=== PATIENT | male | born 1990 | race African-American/Black ===

== ENCOUNTER 2020-06-16 12:02 | Emergency (ER) | payer OTHER ==
[~2020-06-16] VITALS: Ht 170.2 cm; Wt 83.3 kg
--- NOTE | 2020-06-16 13:06 | REP ---
INDICATION: R flank pain hx of kidney stones COMPARISON: None TECHNIQUE: Axial noncontrast images from the lung bases to the pubic symphysis with coronal and sagittal reformations. This CT examination was performed using the following dose reduction techniques: Automated exposure control, adjustment of mA and/or kv according to the patient's size, and use of iterative reconstruction technique. FINDINGS: Evaluation of the urinary tract system demonstrates few bilateral punctate nonobstructing nephroliths measuring up to 2-3 mm bilaterally without hydroureteronephrosis or perinephric stranding. However, a 2 mm calculus at the right ureterovesical junction (image 115) cannot be excluded and should be correlated with physical examination and urinalysis. Liver, spleen, pancreas, gallbladder, and bilateral adrenal glands are normal. The enteric system is without obstruction or acute inflammatory process. Normal terminal ileum and appendix identified in the right lower quadrant. Pelvis demonstrates collapsed bladder and age-appropriate prostate/seminal vesicles. No ascites. No free air. No adenopathy. Abdominal aorta appears normal. Musculoskeletal structures are intact. Lung bases are clear. IMPRESSION: Bilateral nephrolithiasis without hydronephrosis or perinephric stranding. Cannot exclude 2 mm calculus at the right ureterovesical junction. <Electronically signed by Oni Trujillo > 06/16/20 [id number]
[2020-06-16] MEDS ORDERED: FLOM0.4C39 PO (13:21)
[2020-06-16] MEDS ORDERED: AZITHROMYCIN 250MG TABLET PO ONE (13:30)
[2020-06-16] MEDS ORDERED: cefTRIAXone SOD 250MG VIAL (J0696 PER 250MG) IM ONE (13:30)
[2020-06-16] MEDS ORDERED: LIDOCAINE 1% SDV 5ML VIAL DILUENT ONE (13:30)
[2020-06-16 13:45] VITALS: BP 118/61
[2020-06-16 14:43] LABS: CHLAMYDIA DNA AMPLIFICATION POSITIVE (NEGATIVE); GC DNA AMPLIFICATION NEGATIVE (NEGATIVE)
== END 2020-06-16 14:15 | disposition home or self-care (01) ==
LOC: M ED 12:02
DX: N20.0 Calculus of kidney (principal); Z11.3 Encounter for screening for infections with a predominantly sexual mode of transmission
CPT/HCPCS: 74176; 81001; 87086; 87661; 99283; J0696

== ENCOUNTER → 2020-06-20 | Outpatient (CLI) | payer OTHER ==
[~2020-06-20] MED LIST: FLOM0.4C39 PO
[2020-06-20 12:01] LABS: SEMEN APPEARANCE OPAQUE (OPAQUE); SEMEN VISCOSITY VISCOUS (LIQUID); SEMEN VOLUME 1.5 ml (2.0-5.0); SEMEN pH 7.5 (7.0-8.0)
[2020-06-20 12:02] LABS: SPERM CONCENTRATION 34.7 M/ml (>=15.0); WBC CONCENTRATION >1 M/ml (<=1 M/ml)
== END ==
LOC: M LAB 11:08
PROVIDERS: ATTEND Family Medicine
DX: Z31.41 Encounter for fertility testing (principal)

== ENCOUNTER 2020-07-30 16:20 | Emergency (ER) | payer OTHER ==
[~2020-07-30] VITALS: Ht 172.7 cm; Wt 82.3 kg
[2020-07-30 16:20] VITALS: BP 133/78
[2020-07-30] MEDS ORDERED: KEPP1TAB2 PO (16:44)
--- NOTE | 2020-07-30 17:06 | REP ---
INDICATION: trauma. COMPARISON: None. TECHNIQUE: CT BRAIN PERFORMED IN THE AXIAL PLANE. CORONAL RECONSTRUCTION IMAGES ARE PERFORMED. FINDINGS: THE VENTRICLES ARE NORMAL IN SIZE AND POSITION. THERE IS NO MIDLINE SHIFT OR MASS EFFECT. GRAJEDA-WHITE DIFFERENTIATION IS WELL MAINTAINED. THERE IS NO ACUTE INTRACRANIAL HEMORRHAGE OR EXTRA-AXIAL FLUID COLLECTION. BONE WINDOW EXAMINATION IS UNREMARKABLE. VISUALIZED MASTOID AIR CELLS AND PARANASAL SINUSES ARE CLEAR. IMPRESSION: NEGATIVE NONCONTRAST CT BRAIN. <Electronically signed by Tyler Grajeda > 07/30/20 [id number]
[2020-07-30] MEDS ORDERED: diphenhydrAMINE 25MG CAP PO ONE (19:00)
[2020-07-30] MEDS ORDERED: levETIRAcetam 250MG TABLET (KEPPRA) PO ONE (19:00)
[2020-07-30] MEDS ORDERED: KETOROLAC 60MG 2ML VIAL IM ONE (19:00)
[2020-07-30] MEDS ORDERED: METOCLOPRAMIDE 10 MG TAB PO ONE (19:00)
--- NOTE | 2020-07-30 19:38 | REPVR ---
PROCEDURE INFORMATION: Exam: CT Cervical Spine Without Contrast Exam date and time: 07/30/2020 7:03 PM Age: 30 years old Clinical indication: Pain; Other: Tender; Additional info: PT tender, heavy metal fell on top of head TECHNIQUE: Imaging protocol: Computed tomography images of the cervical spine without contrast. Radiation optimization: All CT scans at this facility use at least one of these dose optimization techniques: automated exposure control; mA and/or kV adjustment per patient size (includes targeted exams where dose is matched to clinical indication); or iterative reconstruction. COMPARISON: No relevant prior studies available. FINDINGS: Vertebrae: No acute fracture. Reversal of normal cervical lordosis. C2-C3: No significant disc protrusion. No severe spinal canal stenosis. No significant neural foraminal narrowing. C3-C4: No significant disc protrusion. No severe spinal canal stenosis. No significant neural foraminal narrowing. C4-C5: No significant disc protrusion. No severe spinal canal stenosis. No significant neural foraminal narrowing. C5-C6: No significant disc protrusion. No severe spinal canal stenosis. No significant neural foraminal narrowing. C6-C7: No significant disc protrusion. No severe spinal canal stenosis. No significant neural foraminal narrowing. C7-T1: No significant disc protrusion. No severe spinal canal stenosis. No significant neural foraminal narrowing. Soft tissues: Unremarkable. Lungs: Lung apices are normal. IMPRESSION: No acute findings. Electronically signed by: Eloina Loaiza On 07/30/2020 19:38:47 PM
== END 2020-07-30 20:26 | disposition home or self-care (01) ==
LOC: M ED 16:20
DX: S06.0X9A Concussion with loss of consciousness of unspecified duration, initial encounter (principal); W20.8XXA Other cause of strike by thrown, projected or falling object, initial encounter; W50.0XXA Accidental hit or strike by another person, initial encounter; Y92.89 Other specified places as the place of occurrence of the external cause; Y93.89 Activity, other specified; Y99.1 Military activity; Z87.442 Personal history of urinary calculi; Z79.899 Other long term (current) drug therapy

== ENCOUNTER 2020-08-05 09:34 | Emergency (ER) | payer OTHER ==
[~2020-08-05] VITALS: Ht 170.2 cm; Wt 86.5 kg
[~2020-08-05 09:34] MED LIST changes: +KEPP1TAB2 PO
[2020-08-05 10:04] LABS: BASO % 0.3 % (0.0-1.0); EOS % 0.6 % (0.0-3.0); HEMATOCRIT 47.1 % (42.0-52.0); HEMOGLOBIN 15.4 g/dl (13.5-17.5); LYMPH # 1.5 10^3/uL (1.5-5.0); LYMPH % 22.1 % (24.0-44.0); MEAN CORPUSCULAR HEMOGLOBIN 28.8 pg (27.0-33.0); MEAN CORPUSCULAR HGB CONC 32.7 g/dl (32.0-36.5); MEAN CORPUSCULAR VOLUME 88.2 fl (80.0-96.0); MONO # 0.6 10^3/uL (0.0-0.8); MONO % 8.5 % (0.0-5.0); NEUTROPHILS # 4.6 10^3/uL (1.5-8.5); NEUTROPHILS % 68.1 % (36.0-66.0); PLATELET COUNT, AUTOMATED 231 10^3/uL (150-450); RED BLOOD COUNT 5.34 10^6/uL (4.30-6.10); WHITE BLOOD COUNT 6.7 10^3/uL (4.0-10.0)
--- NOTE | 2020-08-05 10:15 | REP ---
INDICATION: Altered Mental Status COMPARISON: 07/30/2020 TECHNIQUE: Axial noncontrast images from the skull base to the vertex with coronal reformations. This CT examination was performed using the following dose reduction techniques: Automated exposure control, adjustment of mA and/or kv according to the patient's size, and use of iterative reconstruction technique. FINDINGS: The ventricles, sulci, and cisterns are normal in position and appearance. Graejda-white differentiation is maintained. No acute intracranial hemorrhage, mass/mass effect, pathology or trauma/injury. No evidence for acute infarction. No extra-axial fluid collection. Calvarium is intact. Paranasal sinuses and mastoid air cells are clear. IMPRESSION: Normal noncontrast head CT. No evidence for acute intracranial pathology or trauma/injury. <Electronically signed by Oni Trujillo > 08/05/20 [id number]
--- NOTE | 2020-08-05 10:17 | REP ---
INDICATION: head injury COMPARISON: 07/30/2020 TECHNIQUE: Axial noncontrast images from the skull base to the thoracic inlet with coronal and sagittal re-formations This CT examination was performed using the following dose reduction techniques: Automated exposure control, adjustment of mA and/or kv according to the patient's size, and use of iterative reconstruction technique. FINDINGS: Examination is somewhat limited by motion artifact. Normal alignment is maintained. Straightening of normal lordosis is nonspecific finding. Cervical vertebral bodies including transverse processes and spinous processes are intact and there is no evidence for acute fracture / compression injury or subluxation. Spinal canal is patent. Posterior elements are intact. Paravertebral soft tissues are normal. IMPRESSION: No acute pathology or trauma/injury. <Electronically signed by Oni Trujillo > 08/05/20 [id number]
[2020-08-05 10:36] LABS: ALT/SGPT 39 U/L (12-78); BILIRUBIN,DIRECT < 0.1 MG/DL (0.0-0.2); BILIRUBIN,TOTAL 0.4 MG/DL (0.2-1.0); BLOOD UREA NITROGEN 9 MG/DL (7-18); CALCIUM LEVEL 9.3 MG/DL (8.5-10.1); CARBON DIOXIDE LEVEL 26 MEQ/L (21-32); CHLORIDE LEVEL 105 MEQ/L (98-107); CREATININE FOR GFR 1.37 MG/DL (0.70-1.30); GLOMERULAR FILTRATION RATE > 60.0 (>60); GLUCOSE, FASTING 93 MG/DL (70-100); MAGNESIUM LEVEL 2.4 MG/DL (1.8-2.4); POTASSIUM SERUM 4.3 MEQ/L (3.5-5.1); SODIUM LEVEL 139 MEQ/L (136-145); TOTAL PROTEIN 8.1 GM/DL (6.4-8.2)
--- OUTSIDE RECORDS SUMMARY | 2020-08-05 11:10 | CCD ---
Author Author [facility] Address Unknown Phone Unavailable Support Name Relationship Address Phone [facility] Next Of Kin [address] [place] [address] Unavailable JULIETA GRIMES Next Of Kin [address] [place] [address] Re-disclosure Warning The records that you are about to access may contain information from federally-assisted alcohol or drug abuse programs. If such information is present, then the following federally mandated warning applies: This information has been disclosed to you from records protected by federal confidentiality rules (42 CFR part 2). The federal rules prohibit you from making any further disclosure of this information unless further disclosure is expressly permitted by the written consent of the person to whom it pertains or as otherwise permitted by 42 CFR part 2. A general authorization for the release of medical or other information is NOT sufficient for this purpose. The Federal rules restrict any use of the information to criminally investigate or prosecute any alcohol or drug abuse patient.The records that you are about to access may contain highly sensitive health information, the redisclosure of which is protected by Article 27-F of the [facility] Public Health law. If you continue you may have access to information: Regarding HIV / AIDS; Provided by facilities licensed or operated by the [facility] Office of Mental Health; or Provided by the [facility] Office for People With Developmental Disabilities. If such information is present, then the following [facility] mandated warning applies: This information has been disclosed to you from confidential records which are protected by state law. State law prohibits you from making any further disclosure of this information without the specific written consent of the person to whom it pertains, or as otherwise permitted by law. Any unauthorized further disclosure in violation of state law may result in a fine or chcf sentence or both. A general authorization for the release of medical or other information is NOT sufficient authorization for further disc losure. Insurance Providers Payer name Policy type / Coverage type Policy ID Covered green party ID Covered green party's relationship to yao Policy Yao Plan Information [facility] [id number]
[2020-08-05] MEDS ORDERED: ACETAMINOPHEN TAB 650MG DOSE (2X325MG) PO ONE (11:45)
[2020-08-05] MEDS ORDERED: levETIRAcetam INJection 1,000 MG in D5W 100 ML IV ONE (13:00)
[2020-08-05] MEDS ORDERED: KEPP1TAB2 PO ×2 (13:00→13:35)
[2020-08-05 13:10] LABS: AMPHETAMINES LEVEL URINE NEGATIVE (NEGATIVE); BARBITURATES URINE NEGATIVE (NEGATIVE); BENZODIAZEPINES URINE NEGATIVE (NEGATIVE); CANNABINOIDS URINE NEGATIVE (NEGATIVE); COCAINE METABOLITE URINE NEGATIVE (NEGATIVE); METHADONE URINE NEGATIVE (NEGATIVE); OPIATES URINE NEGATIVE (NEGATIVE); PHENCYCLIDINE URINE NEGATIVE (NEGATIVE)
[2020-08-05 13:48] LABS: ETHYL ALCOHOL (ETHANOL) < 0.003 % (0.000-0.010)
[2020-08-05 14:00] VITALS: BP 117/64
--- NOTE | 2020-08-05 17:22 | ECGEPIP ---
[facility] - ED Test Date: 2020-08-05 Pat Name: SAMMY GRIMES Department: Room: - Gender: Male Database Report Writer: DAYAN : 1990 Requested By: IRMA SIDDIQI Order Number: [id number] Reading MD: Kayla Mckinney Measurements Intervals [place] Rate: 78 P: 68 LA: 189 QRS: 46 QRSD: 81 T: 44 QT: 355 QTc: 406 Interpretive Statements SINUS RHYTHM EARLY REPOLARIZATION No prior Electronically Signed on 08-05-2020 17:22:26 EST by Kayla Mckinney
== END 2020-08-05 14:40 | disposition home or self-care (01) ==
LOC: EDBD 09:34 → M ED 09:34
DX: R56.9 Unspecified convulsions (principal); R51.9 Headache, unspecified; Z87.828 Personal history of other (healed) physical injury and trauma; Z91.138 Patient's unintentional underdosing of medication regimen for other reason
CPT/HCPCS: 70450; 72125; 80048; 80076; 80307; 83735; 84443; 85025; 93005; 93041; 94760; 96365; 99285; G0480; J1953

== ENCOUNTER 2020-10-05 12:40 | Emergency (ER) | payer OTHER ==
[~2020-10-05] VITALS: Ht 170.2 cm; Wt 82.5 kg
[2020-10-05] MEDS ORDERED: KEPP1TAB2 PO (13:41)
[2020-10-05 13:52] VITALS: BP 120/48
== END 2020-10-05 13:53 | disposition home or self-care (01) ==
LOC: M ED 12:40
DX: Z76.0 Encounter for issue of repeat prescription (principal); G40.419 Other generalized epilepsy and epileptic syndromes, intractable, without status epilepticus

== ENCOUNTER 2020-11-11 22:30 | Emergency (ER) | payer OTHER ==
[~2020-11-11] VITALS: Ht 170.2 cm; Wt 79.5 kg
[2020-11-11] MEDS ORDERED: levETIRAcetam 250MG TABLET (KEPPRA) PO ONE (23:10)
[2020-11-11] MEDS ORDERED: KEPP1TAB2 PO (23:51)
[2020-11-12 00:21] LABS: HEMATOCRIT 42.1 % (42.0-52.0); HEMOGLOBIN 14.5 g/dl (13.5-17.5); MEAN CORPUSCULAR HGB CONC 34.4 g/dl (32.0-36.5); MEAN CORPUSCULAR VOLUME 87.2 fl (80.0-96.0); PLATELET COUNT, AUTOMATED 198 10^3/uL (150-450); RED BLOOD COUNT 4.83 10^6/uL (4.30-6.10); WHITE BLOOD COUNT 7.7 10^3/uL (4.0-10.0)
[2020-11-12 00:26] LABS: ALBUMIN 3.8 GM/DL (3.2-5.2); ALT/SGPT 43 U/L (12-78); BILIRUBIN,DIRECT < 0.1 MG/DL (0.0-0.2); BILIRUBIN,TOTAL 0.4 MG/DL (0.2-1.0); BLOOD UREA NITROGEN 14 MG/DL (7-18); CALCIUM LEVEL 9.6 MG/DL (8.5-10.1); CARBON DIOXIDE LEVEL 25 MEQ/L (21-32); CHLORIDE LEVEL 110 MEQ/L (98-107); CREATININE FOR GFR 1.22 MG/DL (0.70-1.30); GLOMERULAR FILTRATION RATE > 60.0 (>60); GLUCOSE, FASTING 107 MG/DL (70-100); POTASSIUM SERUM 4.4 MEQ/L (3.5-5.1); SODIUM LEVEL 141 MEQ/L (136-145); TOTAL PROTEIN 7.5 GM/DL (6.4-8.2)
[2020-11-12 02:30] VITALS: BP 122/71
== END 2020-11-12 03:23 | disposition home or self-care (01) ==
LOC: M ED 22:30
DX: G40.909 Epilepsy, unspecified, not intractable, without status epilepticus (principal); Z91.14 Patient's other noncompliance with medication regimen; N23 Unspecified renal colic; Z87.820 Personal history of traumatic brain injury; Z79.899 Other long term (current) drug therapy

== ENCOUNTER → 2021-02-27 | Outpatient (REF) | payer OTHER ==
[2021-02-27 14:29] LABS: SEMEN APPEARANCE OPAQUE (OPAQUE); SEMEN VOLUME 3.5 ml (2.0-5.0)
[2021-02-27 14:30] LABS: SEMEN VISCOSITY LIQUID (LIQUID); SEMEN pH 7.5 (7.0-8.0); SPERM CONCENTRATION 13.3 M/ml (>=15.0); WBC CONCENTRATION >1 M/ml (<=1 M/ml)
== END ==
LOC: M LAB REF 14:14
PROVIDERS: ATTEND Obstetrics & Gynecology
DX: N46.8 Other male infertility (principal)

== ENCOUNTER 2021-06-08 06:32 | Emergency (ER) | payer OTHER ==
[~2021-06-08] VITALS: Ht 170.2 cm; Wt 79.5 kg
--- OUTSIDE RECORDS SUMMARY | 2021-06-08 06:41 | CCD | Continuity of Care Document ---
Author Author Neeru HIGGINS M.D. Organization Unknown Address [facility] [address] [place] [address] Phone [phone] Care Team Providers Care Director Of Cardiopulmonary Services Name Role Phone Usa Meddac, [facility] AUTM Unavailable Problems Description No Active Problems Social History Type Date Description Comments Sex Unknown Tobacco Use Start: Unknown Never Smoked Cigars Tobacco Use Start: Unknown Never Smoked A Pipe Tobacco Use Start: Unknown Never Used Smokeless Tobacco ETOH Use Denies alcohol use Tobacco Use Start: Unknown Patient has never smoked Recreational Drug Use Denies Drug Use Allergies, Adverse Reactions, Alerts Description No Known Drug Allergies Medications Description No Active Medications Immunizations Description No Information Available Vital Signs Date Vital Result Comment 04/28/2021 10:51am BP Systolic 122 mmHg BP Diastolic 80 mmHg Heart Rate 74 /min O2 % BldC Oximetry 97 % Weight 175.00 lb Weight 79.380 kg Height 67 inches 5'7" BMI (Body Mass Index) 27.4 kg/m2 BSA (Body Surface Area) 1.91 m2 Results Test Acquired Date Facility Test Result H/L Range Note Inhouse [facility] 04/28/2021 In Office [facility] Color yellow Normal: Yellow Ua Appearance clear Normal: Clear Spec [place] 1.010 1.001-1.030 Ua PH Test Strip 7 5-9 Leukocytes negative Normal: Negative Ua Nitrate negative Normal: Negative Ua Protein negative Normal: Negative Inhouse Glucose negative Normal: Negative Ua Ketones negative Noraml: Negative Urobilinogen negative Normal: Negative Ua Bilirubin negative Normal: Negative Blood negative Noraml: Negative Procedures Date Code Description Status 04/28/2021 90868 Office/Outpatient [facility] 15- 29 Minutes Completed Medical Devices Description No Information Available Encounters Type Date Location Provider Dx Diagnosis Office Visit 04/28/2021 10:30a [facility] Anand Higgins M.D. N46.9 Male infertility, unspecified Z71.2 Person consulting for explan ation of exam or test findings Assessments Date Code Description Provider 04/28/2021 N46.9 Male infertility, unspecified Fe arielle Higgins M.D. 04/28/2021 Z71.2 Person consulting fo r explanation of examination or test findings Anand Higgins M.D. Plan of Treatment 04/28/2021 - Anand Higgins M.D.* N46.9 Male infertility, unspecified* Comments: * 1. Patient presents to the clinic today for evaluation and management of infertility issues.2. Physical examination completed in the office was unremarkable.3. Urinalysis was negative, which was reviewed with him.4. Last semen analysis result was reviewed with him at length. They are not having problems with attaining but with keeping it.5. The low semen parameters obviously are not preventing them from achieving a .I think they will benefit from genetic testing to investigate the cause of recurrent miscarriages.6. Patient verbalized understanding and agreed to the care plan. All of his questions were answered. 7. No scheduled follow-up appointment at this time, will be glad to see patient back as needed. * Follow up:* PRN * Z71.2 Person consulting for explanation of examination or test findings* Comments:* Semen analysis done on 12/28/20 revealed fresh, opaque, 3.5 mL liquid in viscosity with a pH of 7.5, WBC's noted and WBC concentration of 1 M/mL, sperm concentration of 13.3, progressive of 22%, non-progressive of 13%, total motility of 35%, immotility of 65%, % normal forms of 4%. Sperm # 46.5, prog maria elena sperm of 10.2, functional sperm of 1.0.Result was reviewed with the patient at length. Functional Status Description No Information Available Mental Status Description No Information Available Referrals Description No Information Available
--- OUTSIDE RECORDS SUMMARY | 2021-06-08 06:42 | CCD | Continuity of Care Document ---
Author Author [facility] Organization Unknown Address [address] [place] [address] Phone [phone] Care Team Providers Care Sleep Lab Technologist Name Role Phone Usa Meddac, [facility] AUTM Unavailable Problems Description No Active Problems [...] Yellow Ua Appearance clear Normal: Clear Spec [place] 1.010 1.001-1.030 Ua PH Test Strip 7 5-9 Leukocytes negative Normal: Negative Ua Nitrate negative Normal: Negative Ua Protein negative Normal: Negative Inhouse Glucose negative Normal: Negative Ua Ketones negative Noraml: Negative Urobilinogen negative Normal: Negative Ua Bilirubin negative Normal: Negative Blood negative Noraml: Negative Procedures Date Code Description Status 04/28/2021 81950 Office/Outpatient [facility] 15- 29 Minutes Completed Medical Devices Description No Information Available Encounters Type Date Location Provider Dx Diagnosis Office Visit 04/28/2021 10:30a [facility] Anand T. Oben, M.D. N46.9 Male infertility, unspecified Z71.2 Person consulting for explan ation of exam or test findings Assessments Date Code Description Provider 04/28/2021 N46.9 Male infertility, unspecified Fe arielle Wolfe M.D. 04/28/2021 Z71.2 Person consulting fo r explanation of examination or test findings Anand Wolfe M.D. Plan of Treatment 04/28/2021 - Anand Wolfe M.D.* N46.9 Male infertility, unspecified* Comments: * [...]
--- OUTSIDE RECORDS SUMMARY | 2021-06-08 06:42 | CCD | Continuity of Care Document ---
Author Author [facility] Organization Unknown Address [address] [place] [address] Phone [phone] Care Team Providers Care Paralegal Legal Secretary Name Role Phone Usa Meddac, [facility] AUTM Unavailable Problems Description No Active Problems [...] Yellow Ua Appearance clear Normal: Clear Spec [place] 1.010 1.001-1.030 Ua PH Test Strip 7 5-9 Leukocytes negative Normal: Negative Ua Nitrate negative Normal: Negative Ua Protein negative Normal: Negative Inhouse Glucose negative Normal: Negative Ua Ketones negative Noraml: Negative Urobilinogen negative Normal: Negative Ua Bilirubin negative Normal: Negative Blood negative Noraml: Negative Procedures Date Code Description Status 04/28/2021 84050 Office/Outpatient [facility] 15- 29 Minutes Completed Medical Devices Description No Information Available Encounters Type Date Location Provider Dx Diagnosis Office Visit 04/28/2021 10:30a [facility] Anand T. Oben, M.D. [...] of 4%. Sperm # 46.5, prog maria elnea sperm of 10.2, functional sperm of 1.0.Result was reviewed with the patient at length. Functional Status Description No Information Available Mental Status Description No Information Available Referrals Description No Information Available
--- OUTSIDE RECORDS SUMMARY | 2021-06-08 06:42 | CCD | Continuity of Care Document ---
Author Author [facility] Organization Unknown Address [address] [place] [address] Phone [phone] Care Team Providers Care Heat Treater Helper Name Role Phone Usa Meddac, [facility] AUTM Unavailable Problems Description No Active [...] Yellow Ua Appearance clear Normal: Clear Spec [place] 1.010 1.001-1.030 Ua PH Test Strip 7 5-9 Leukocytes negative Normal: Negative Ua Nitrate negative Normal: Negative Ua Protein negative Normal: Negative Inhouse Glucose negative Normal: Negative Ua Ketones negative Noraml: Negative Urobilinogen negative Normal: Negative Ua Bilirubin negative Normal: Negative Blood negative Noraml: Negative Procedures Date Code Description Status 04/28/2021 [id number] Office/Outpatient [facility] 15- 29 Minutes Completed Medical Devices Description No Information Available Encounters Type Date Location Provider Dx Diagnosis Office Visit 04/28/2021 10:30a [facility] Anand T. Oben, M.D. [...]
--- OUTSIDE RECORDS SUMMARY | 2021-06-08 06:42 | CCD ---
Author Author [facility] Organization [facility] Address Unknown Phone Unavailable Care Team Providers Care Asic Engineer Name Role Phone Evan HIGGINS MD Unavailable Unavailable Evan HIGGINS MD Unavailable Unavailable Evan HIGGINS MD Unavailable Unavailable Evan HIGGINS MD Unavailable Unavailable Evan HIGGINS MD Unavailable Unavailable Evan HIGGINS MD Unavailable Unavailable Evan HIGGINS MD Unavailable Unavailable Evan HIGGINS MD Unavailable Unavailable Evan HIGGINS MD Unavailable Unavailable Evan HIGGINS MD Unavailable Unavailable Evan HIGGINS MD Unavailable Unavailable Evan HIGGINS MD Unavailable Unavailable Evan HIGGINS MD Unavailable Unavailable Evan HIGGINS MD Unavailable Unavailable Evan HIGGINS MD Unavailable Unavailable Evan HIGGINS MD Unavailable Unavailable Evan HIGGINS MD Unavailable Unavailable Evan HIGGINS MD Unavailable Unavailable Evan HIGGINS MD Unavailable Unavailable Evan HIGGINS MD Unavailable Unavailable Evan HIGGINS MD Unavailable Unavailable Evan HIGGINS MD Unavailable Unavailable Evan HIGGINS MD Unavailable Unavailable Evan HIGGINS MD Unavailable Unavailable Evan HIGGINS MD Unavailable Unavailable Evan HIGGINS MD Unavailable Unavailable Evan HIGGINS MD Unavailable Unavailable Evan HIGGINS MD Unavailable Unavailable Evan HIGGINS MD Unavailable Unavailable Evan HIGGINS MD Unavailable Unavailable Evan HIGGINS MD Unavailable Unavailable Evan HIGGINS MD Unavailable Unavailable Evan HIGGINS MD Unavailable Unavailable Evan HIGGINS MD Unavailable Unavailable Evan HIGGINS MD Unavailable Unavailable Evan HIGGINS MD Unavailable Unavailable Evan HIGGINS MD Unavailable Unavailable Evan HIGGINS MD Unavailable Unavailable Evan HIGGINS MD Unavailable Unavailable OBEvan MENJIVAR MD Unavailable Unavailable OBEvan MENJIVAR MD Unavailable Unavailable OBOTTO T LORNA Unavailable Unavailable OBOTTO T LORNA Unavailable Unavailable OBOTTO T LORNA Unavailable Unavailable OBOTTO T LORNA Unavailable Unavailable OBOTTO T LORNA Unavailable Unavailable OBOTTO T LORNA Unavailable Unavailable OBOTTO T LORNA MD Unavailable Unavailable OBOTTO T LORNA MD Unavailable Unavailable OBOTTO T LORNA Unavailable Unavailable OBOTTO T LORNA Unavailable Unavailable OBOTTO T LORNA Unavailable Unavailable OBOTTO T LORNA Unavailable Unavailable OBOTTO T LORNA MD Unavailable Unavailable OBOTTO T LORNA Unavailable Unavailable OBOTTO T LORNA Unavailable Unavailable OBEvan MENJIVAR LORNA MD Unavailable Unavailable OBEvan MENJIVAR LORNA Unavailable Unavailable Jasmin Majano MD Unavailable Unavailable Jasmin Majano MD Unavailable Unavailable Jasmin Majano MD Unavailable Unavailable Jasmin Majano MD Unavailable Unavailable Jasmin Majano MD Unavailable Unavailable Jasmin Majano MD Unavailable Unavailable Jasmin Majano MD Unavailable Unavailable Jasmin Majano MD Unavailable Unavailable Jasmin Majano MD Unavailable Unavailable Jasmin Majano MD Unavailable Unavailable Jasmin Majano MD Unavailable Unavailable Jasmin Majano MD Unavailable Unavailable Jasmin Majano MD Unavailable Unavailable Jasmin Majano MD Unavailable Unavailable Jasmin Majano MD Unavailable Unavailable Jasmin Majano MD Unavailable Unavailable Jasmin Majano MD Unavailable Unavailable Jasmin Majano MD Unavailable Unavailable Jasmin Majano MD Unavailable Unavailable Jasmin Majano MD Unavailable Unavailable Jasmin Majano MD Unavailable Unavailable Jasmin Majano MD Unavailable Unavailable Jasmin Majano MD Unavailable Unavailable Jasmin Majano MD Unavailable Unavailable Jasmin Majano MD Unavailable Unavailable Jasmin Majano MD Unavailable Unavailable Jasmin Majano MD Unavailable Unavailable Jasmin Majano MD Unavailable Unavailable Jasmin Majano MD Unavailable Unavailable Jasmin Majano MD Unavailable Unavailable Jasmin Majano MD Unavailable Unavailable Jasmin Majano MD Unavailable Unavailable Jasmin Majano MD Unavailable Unavailable Jasmin Majano MD Unavailable Unavailable Jasmin Majano MD Unavailable Unavailable Jasmin Majano MD Unavailable Unavailable Jasmin Majano MD Unavailable Unavailable Jasmin Majano MD Unavailable Unavailable Jasmin Majano MD Unavailable Unavailable Jasmin Majano MD Unavailable Unavailable Jasmin Majano MD Unavailable Unavailable Jasmin Majano MD Unavailable Unavailable Jasmin Majano MD Unavailable Unavailable Jasmin Majano MD Unavailable Unavailable Jasmin Majano MD Unavailable Unavailable Jasmin Majano MD Unavailable Unavailable Jasmin Majano MD Unavailable Unavailable Jasmin Majano MD Unavailable Unavailable Jasmin Majano MD Unavailable Unavailable Jasmin Majano MD Unavailable Unavailable Jasmin Majano MD Unavailable Unavailable Jasmin Majano MD Unavailable Unavailable Jasmin Majano MD Unavailable Unavailable Jasmin Majano MD Unavailable Unavailable Jasmin Majano MD Unavailable Unavailable Jasmin Majano MD Unavailable Unavailable Jasmin Majano MD Unavailable Unavailable Jasmin Majano MD Unavailable Unavailable Jasmin Majano MD Unavailable Unavailable Jasmin Majano MD Unavailable Unavailable Jasmin Majano MD Unavailable Unavailable Jasmin Majano MD Unavailable Unavailable Jasmin Majano MD Unavailable Unavailable Jasmin Majano MD Unavailable Unavailable Jasmin Majano MD Unavailable Unavailable Jasmin Majano MD Unavailable Unavailable Jasmin Majano MD Unavailable Unavailable Jasmin Majano MD Unavailable Unavailable Jasmin Majano MD Unavailable Unavailable Jasmin Majano MD Unavailable Unavailable Jasmin Majano MD Unavailable Unavailable Jasmin Majano MD Unavailable Unavailable Jasmin Majano MD Unavailable Unavailable Jasmin Majano MD Unavailable Unavailable Jasmin Majano MD Unavailable Unavailable Jasmin Majano MD Unavailable Unavailable Jasmin Majano MD Unavailable Unavailable Jasmin Majano MD Unavailable Unavailable Jasmin Majano MD Unavailable Unavailable Haseeb Mantilla MD Unavailable Unavailable Haseeb Mantilla MD Unavailable Unavailable Haseeb Mantilla MD Unavailable Unavailable Haseeb Mantilla MD Unavailable Unavailable Haseeb Mantilla MD Unavailable Unavailable Haseeb Mantilla MD Unavailable Unavailable Haseeb Mantilla MD Unavailable Unavailable Haseeb Mantilla MD Unavailable Unavailable Haseeb Mantilla MD Unavailable Unavailable Haseeb Mantilla MD Unavailable Unavailable Haseeb Mantilla MD Unavailable Unavailable Haseeb Mantilla MD Unavailable Unavailable Haseeb Mantilla MD Unavailable Unavailable Haseeb Mantilla MD Unavailable Unavailable Haseeb Mantilla MD Unavailable Unavailable Haseeb Mantilla MD Unavailable Unavailable Haseeb Mantilla MD Unavailable Unavailable Haseeb Mantilla MD Unavailable Unavailable Haseeb Mantilla MD Unavailable Unavailable Haseeb Mantilla MD Unavailable Unavailable Haseeb Mantilla MD Unavailable Unavailable Haseeb Mantilla MD Unavailable Unavailable Haseeb Mantilla MD Unavailable Unavailable Haseeb Mantilla MD Unavailable Unavailable Haseeb Mantilla MD Unavailable Unavailable Haseeb Mantilla MD Unavailable Unavailable Haseeb Mantilla MD Unavailable Unavailable Haseeb Mantilla MD Unavailable Unavailable Haseeb Mantilla MD Unavailable Unavailable Haseeb Mantilla MD Unavailable Unavailable Haseeb Mantilla MD Unavailable Unavailable Haseeb Mantilla MD Unavailable Unavailable Haseeb Mantilla MD Unavailable Unavailable Haseeb Mantilla MD Unavailable Unavailable Haseeb Mantilla MD Unavailable Unavailable Haseeb Mantilla MD Unavailable Unavailable Haeseb Mantilla MD Unavailable Unavailable Haseeb Mantilla MD Unavailable Unavailable Haseeb Mantilla MD Unavailable Unavailable Haseeb Mantilla MD Unavailable Unavailable Haseeb Mantilla MD Unavailable Unavailable Haseeb Mantilla MD Unavailable Unavailable Haseeb Mantilla MD Unavailable Unavailable Haseeb Mantilla MD Unavailable Unavailable Haseeb Mantilla MD Unavailable Unavailable Haseeb Mantilla MD Unavailable Unavailable Haseeb Mantilla MD Unavailable Unavailable Haseeb Mantilla MD Unavailable Unavailable Haseeb Mantilla MD Unavailable Unavailable Haseeb Mantilla MD Unavailable Unavailable Haseeb Mantilla MD Unavailable Unavailable Haseeb Mantilla MD Unavailable Unavailable Haseeb Mantilla MD Unavailable Unavailable Haseeb Mantilla MD Unavailable Unavailable Haseeb Mantilla MD Unavailable Unavailable Haseeb Mantilla MD Unavailable Unavailable Haseeb Mantilla MD Unavailable Unavailable Haseeb Mantilla MD Unavailable Unavailable Haseeb Mantilla MD Unavailable Unavailable Haseeb Mantilla MD Unavailable Unavailable Haseeb Mantilla MD Unavailable Unavailable Haseeb Mantilla MD Unavailable Unavailable Haseeb Mantilla MD Unavailable Unavailable Haseeb Mantilla MD Unavailable Unavailable Haseeb Mantilla MD Unavailable Unavailable Haseeb Mantilla MD Unavailable Unavailable Haseeb Mantilla MD Unavailable Unavailable Haseeb Mantilla MD Unavailable Unavailable Haseeb Mantilla MD Unavailable Unavailable Haseeb Mantilla MD Unavailable Unavailable Haseeb Mantilla MD Unavailable Unavailable Haseeb Mantilla MD Unavailable Unavailable Haseeb Mantilla MD Unavailable Unavailable Haseeb Manitlla MD Unavailable Unavailable Haseeb Mantilla MD Unavailable Unavailable Haseeb Mantilla MD Unavailable Unavailable Haseeb Mantilla MD Unavailable Unavailable Haseeb Mantilla MD Unavailable Unavailable Haseeb Mantilla MD Unavailable Unavailable Haseeb Mantilla MD Unavailable Unavailable Haseeb Mantilla MD Unavailable Unavailable Haseeb Mantilla MD Unavailable Unavailable Haseeb Mantilla MD Unavailable Unavailable Haseeb Mantilla MD Unavailable Unavailable Haseeb Mantilla MD Unavailable Unavailable Haseeb Mantilla MD Unavailable Unavailable Haseeb Mantilla MD Unavailable Unavailable Haseeb Mantilla MD Unavailable Unavailable Haseeb Mantilla MD Unavailable Unavailable Haseeb Mantilla MD Unavailable Unavailable Haseeb Mantilla MD Unavailable Unavailable Haseeb Mantilla MD Unavailable Unavailable Haseeb Mantilla MD Unavailable Unavailable Evan HIGGINS MD Unavailable Unavailable Evan HIGGINS MD Unavailable Unavailable Evan HIGGINS MD Unavailable Unavailable Evan HIGGINS MD Unavailable Unavailable Evan HIGGINS MD Unavailable Unavailable Evan HIGGINS MD Unavailable Unavailable Evan HIGGINS MD Unavailable Unavailable Evan HIGGINS MD Unavailable Unavailable OBEvan MENJIVAR MD Unavailable Unavailable Evan HIGGINS MD Unavailable Unavailable Evan HIGGINS MD Unavailable Unavailable Evan HIGGINS MD Unavailable Unavailable OBEvan MENJIVAR MD Unavailable Unavailable OBEvan MENJIVAR MD Unavailable Unavailable Evan HIGGINS MD Unavailable Unavailable OBEvan MENJIVAR MD Unavailable Unavailable Evan HIGGINS MD Unavailable Unavailable OBEvan MENJIVAR MD Unavailable Unavailable OBEvan MENJIVAR MD Unavailable Unavailable OBEvan MENJIVAR MD Unavailable Unavailable OBEvan MENJIVAR MD Unavailable Unavailable OBEvan MENJIVAR MD Unavailable Unavailable OBEvan MENJIVAR MD Unavailable Unavailable OBEvan MENJIVAR MD Unavailable Unavailable OBEvan MENJIVAR MD Unavailable Unavailable OBEvan MENJIVAR MD Unavailable Unavailable OBEvan MENJIVAR MD Unavailable Unavailable OBEvan MENJIVAR MD Unavailable Unavailable OBEvan MENJIVAR MD Unavailable Unavailable OBEvan MENJIVAR LORNA MD Unavailable Unavailable OBEvan MENJIVAR LORNA MD Unavailable Unavailable OBEvan MENJIVAR MD Unavailable Unavailable OBEvan MENJIVAR LORNA MD Unavailable Unavailable OBEvan MENJIVAR LORNA MD Unavailable Unavailable OBEN, T LORNA MD Unavailable Unavailable OBEN, T LORNA MD Unavailable Unavailable OBEN, T LORNA MD Unavailable Unavailable OBEN, T LORNA MD Unavailable Unavailable OBEN, T LORNA MD Unavailable Unavailable OBEN, T LORNA MD Unavailable Unavailable OBEN, T LORNA MD Unavailable Unavailable OBEN, T LORNA MD Unavailable Unavailable OBEN, T LORNA MD Unavailable Unavailable OBEN, T LORNA MD Unavailable Unavailable OBEN, T LORNA MD Unavailable Unavailable OBEN, T LORNA MD Unavailable Unavailable OBEN, T LORNA MD Unavailable Unavailable OBEN, T LORNA MD Unavailable Unavailable OBEN, T LORNA MD Unavailable Unavailable OBEN, T LORNA MD Unavailable Unavailable OBEN, T LORNA MD Unavailable Unavailable OBEN, T LORNA MD Unavailable Unavailable OBEN, T LORNA MD Unavailable Unavailable OBEN, T LORNA MD Unavailable Unavailable OBEN, T LORNA MD Unavailable Unavailable OBEN, T LORNA MD Unavailable Unavailable OBEN, T LORNA MD Unavailable Unavailable OBEN, T LORNA MD Unavailable Unavailable Re-disclosure Warning The records that you are [...] is protected by Article 27-F of the [facility] Public Health law. If you continue you may have access to information: Regarding HIV / AIDS; Provided by facilities licensed or operated by the [facility] Office of Mental Health; or Provided by the [facility] Office for People With Developmental Disabilities. If such information is present, then the following [facility] mandated warning applies: This information has [...] law may result in a fine or intermediate sentence or both. A general authorization for the release of medical or other information is NOT sufficient authorization for further disc losure. Encounters Encounter Providers Location Date Indications Data Source(s ) Outpatient Attender: LORNA HIGGINS MD 04/28/20 10:38:00 AM EDT - 04/28/2021 10:38:00 AM EDT Outpatient Attender: LORNA HIGGINS MD Family Practice 04/28/2021 10:30:0 0 AM EDT [facility] ([facility]) Outpatient Attender: Renee Majano MD Main office [facility] 09/12/2020 07:00:00 AM EST [facility] ([facility]) Outpatient Attender: Aurelio Mantilla MD ALL 05/06/2020 02:41:02 PM EDT [facility] Outpatient Attender: Aurelio Mantilla MD ALL 05/01/2020 01:50:01 PM EDT [facility] Outpatient Attender: Aurelio Mantilla MD ALL 05/01/2020 01:49:01 PM EDT [facility] Medications No Information Insurance Providers Payer name Policy type / Coverage type Policy ID Covered green party ID Covered green party's relationship to yao Policy Yao Plan Information [facility] [employer] DUTY [id number] SP [id number] [facility] [place] [id number] 18 [id number] [facility] [id number] SP [id number] Problems, Conditions, and Diagnoses Code Display Name Description Problem Type Effective Dates Data Source(s) 46047618 Concussion with loss of consciousness Co ncussion with loss of consciousness Problem 09/12/2020 12:00:00 AM EST [facility] ([facility]) 953622561 Concussion injury of brain Concussion injury of brain Problem 09/12/2020 12:00:00 AM EST [facility] ([facility]) [id number] Seizure Seizure Problem 09/12/2020 12:00:00 AM ES T [facility] ([facility]) V01.79 Contact with and (suspected) exposure to other viral communicable diseases Contact with and (suspected) exposure to other viral communicable diseases 05/01/2020 01:48:04 PM EDT [facility] Surgeries/Procedures Procedure Description Date Indications Data Source(s) OFFICE OUTPATIENT NEW 20 MINUTES 04/28/2021 12:00:00 A M EDT [facility] ([facility]) MRI BRAIN BRAIN STEM W/O CONTRAST MATERIAL 10/05/2020 12:00:00 AM EST [facility] ([facility] MRI BRAIN BRAIN STEM W/O CONTRAST MATERIAL 10/05/2020 12:00:00 AM EST [facility] ([facility]) ELECTROENCEPHALOGRAM W/REC AWAKE&ASLEEP 09/18/2020 12: 00:00 AM EST [facility] ([facility] ELECTROENCEPHALOGRAM W/REC AWAKE&ASLEEP 09/18/2020 12: 00:00 AM EST [facility] ([facility] ) Results ID Date Data Source [id number] 04/28/2021 03:10:00 PM EDT [facility] ([facility]) Name Value Range Interpretation Code Description Data Violette rce(s) Supporting Document(s) Appearance of Urine Laboratory test result [facility] ([facility]) Spec Zebulon 1.010 1.001-1.030 [facility] ([facility]) Color of Urine Laboratory test result [facility] ([facility]) Leukocytes Laboratory test result [facility] ([facility]) pH of Urine by Test strip 7 5-9 [facility] NT ([facility]) Nitrate [Presence] in Urine Laboratory test result [facility] ([facility]) Inhouse Glucose Laboratory test result [facility] ([facility]) Protein [Presence] in Urine by Test strip Laboratory test result [facility] ([facility]) Ketones [Presence] in Urine by Test strip Laboratory test result [facility] ([facility]) Urobilinogen Laboratory test result [facility] ([facility]) Blood type and Indirect antibody screen panel - Blood Laboratory test result [facility] ([facility]) Bilirubin.total [Presence] in Urine by Test strip Laboratory test res ult [facility] ([facility]) ID Date Data Source [id number] 04/01/2021 09:09:00 AM EDT [facility] Name Value Range Interpretation Code Description Data Violette rce(s) Supporting Document(s) SARS coronavirus 2 RNA Not Detected [facility] [place] This lab was ordered by [facility] and reported by [facility]. ID Date Data Source [id number] 09/10/2020 09:15:00 AM EST [facility] Name Value Range Interpretation Code Description Data Violette rce(s) Supporting Document(s) SARS coronavirus 2 RNA Not Detected [facility] [place] This lab was ordered by [facility] and reported by [facility]. ID Date Data Source [id number] 05/01/2020 02:50:49 PM EDT [facility] In-House Lab TestsDate/Time Collect ed: May 01, 2020 2:51 PMComments: COVID test conducted in left nostril PT tolerated well Jean Claude Edmonds LPN, May 01, 2020 2:52 PMAssessment & Plan Orders:Specimen Handling [[id number]] Name Value Range Interpretation Code Description Data Violette rce(s) Supporting Document(s) ID Date Data Source [id number] 05/01/2020 02:45:00 AM EDT [facility] Name Value Range Interpretation Code Description Data Violette rce(s) Supporting Document(s) SARS-COV-2 RNA RESP QL CHAD+PROBE [facility] This lab was ordered by [facility] and reported by [facility]. Procedure Social History No Information Vital Signs ID Date Data Source UNK Name Value Range Interpretation Code Description Data Source(s) Body height 67 [in_i] 67 [in_i] [facility] ([facility]) 5'7" Body weight 79.380 kg 79.380 kg [facility] ([facility]) Body surface area Derived from formula 1.91 m2 1.91 m2 [facility] ([facility]) Body weight 175.00 [lb_av] 175.00 [lb_av] MED[facility] T ([facility]) Body mass index (BMI) [Ratio] 27.4 kg/m2 27.4 k g/m2 [facility] ([facility]) Systolic blood pressure 122 mm[Hg] 122 mm[Hg] M [facility] ([facility]) Diastolic blood pressure 80 mm[Hg] 80 mm[Hg] [facility] Heart rate 74 /min 74 /min [facility] ([facility]) Oxygen saturation in Arterial blood by Pulse oximetry 97 % 97 % [facility] ([facility]) Respiratory rate 12 /min 12 /min [facility] ( [facility] ) [place] body weight 148 [lb_av] 148 [lb_av] ARNEL Gordon ([facility] ) Body height 67 [in_i] 67 [in_i] [facility] ([facility] 5'7" Body weight 175.00 [lb_av] 175.00 [lb_av] ARNEL Gordon ([facility] ) Body mass index (BMI) [Ratio] 27.4 kg/m2 27.4 k g/m[facility]
--- OUTSIDE RECORDS SUMMARY | 2021-06-08 06:42 | CCD | Continuity of Care Document ---
Author Author [facility], A Organization Unknown Address [address] [place] [address] Phone [phone] Care Team Providers Care Manager Infrastructure Name Role Phone Usa Meddac, Jareth [facility] AUTM Unavailable Problems Description No Active [...] Yellow Ua Appearance clear Normal: Clear Spec [employer] 1.010 1.001-1.030 Ua PH Test Strip 7 5-9 Leukocytes negative Normal: Negative Ua Nitrate negative Normal: Negative Ua Protein negative Normal: Negative Inhouse Glucose negative Normal: Negative Ua Ketones negative [place]: Negative Urobilinogen negative Normal: Negative Ua Bilirubin negative Normal: Negative Blood negative [facility]: Negative Procedures Date Code Description Status 04/28/2021 10585 Office/Outpatient [facility] 15- 29 Minutes Completed Medical Devices Description No Information Available Encounters Type Date Location Provider Dx Diagnosis Office Visit 04/28/2021 10:30a [facility] Anand T. Oben, M.D. [...]
--- OUTSIDE RECORDS SUMMARY | 2021-06-08 06:42 | CCD | Continuity of Care Document ---
Author Author [facility], A Organization Unknown Address [address] [place] [address] Phone [phone] Care Team Providers Care Manager Statistical Programming Name Role Phone Usa Meddac, Jareth [facility] AUTM Unavailable Problems Description No Active Problems [...] Yellow Ua Appearance clear Normal: Clear Spec [place] 1.010 1.001-1.030 Ua PH Test Strip 7 5-9 Leukocytes negative Normal: Negative Ua Nitrate negative Normal: Negative Ua Protein negative Normal: Negative Inhouse Glucose negative Normal: Negative Ua Ketones negative [place]: Negative Urobilinogen negative Normal: Negative Ua Bilirubin negative Normal: Negative Blood negative [facility]: Negative Procedures Date Code Description Status 04/28/2021 18007 Office/Outpatient [facility] 15- 29 Minutes Completed Medical Devices Description No Information Available Encounters Type Date Location Provider Dx Diagnosis Office Visit 04/28/2021 10:30a [facility] Urology Center Anand T. Oben, M.D. [...]
--- OUTSIDE RECORDS SUMMARY | 2021-06-08 07:43 | CCD ---
Author Author [facility] Organization [facility] Address Unknown Phone Unavailable Care Team Providers Care Writing Manager Name Role Phone Evan HIGGINS MD Unavailable [...] Unavailable Unavailable Evan HIGGINS MD Unavailable Unavailable Evna HIGGINS MD Unavailable Unavailable Evan HIGGINS MD [...] Evan HIGGINS MD Unavailable Unavailable OBEvan MENJIVAR LORNA MD Unavailable Unavailable OBEvan MENJIVAR LORNA MD Unavailable Unavailable OBOTTO T LORNA MD Unavailable Unavailable OBOTTO T LORNA Unavailable Unavailable OBOTTO T LORNA Unavailable Unavailable OBOTTO T LORNA Unavailable Unavailable OBOTTO T LORNA Unavailable Unavailable OBEN T LORNA MD Unavailable Unavailable OBEN T LORNA MD Unavailable Unavailable OBEN T LORNA MD Unavailable Unavailable OBOTTO T LORNA Unavailable Unavailable OBOTTO T LORNA Unavailable Unavailable OBOTTO T LORNA MD Unavailable Unavailable OBOTTO T LORNA MD Unavailable Unavailable OBEN T LORNA MD Unavailable Unavailable OBOTTO T LORNA MD Unavailable Unavailable OBOTTO T LORNA MD Unavailable Unavailable OBOTTO T LORNA Unavailable Unavailable OBOTTO T LORNA Unavailable Unavailable Evan HIGGINS LORNA Unavailable Unavailable Jasmin Majano MD Unavailable [...] Unavailable Unavailable OBEvan MENJIVAR MD Unavailable Unavailable OBvEan MENJIVAR MD Unavailable Unavailable OBEvan MENJIVAR MD Unavailable Unavailable OBEvan MENJIVAR MD Unavailable Unavailable OBEvan MENJIVAR MD Unavailable Unavailable OBEvan MENJIVAR MD Unavailable Unavailable OBEvan MENJIVAR MD Unavailable Unavailable OBEvna MENJIVAR MD Unavailable Unavailable OBEvan MENJIVAR MD Unavailable Unavailable OBEvan MENJIVAR MD Unavailable Unavailable OBEvan MENJIVAR MD Unavailable Unavailable OBEN, T LORNA MD [...] is protected by Article 27-F of the [facility] Public Health law. If you continue you may have access to information: Regarding HIV / AIDS; Provided by facilities licensed or operated by the [facility] Office of Mental Health; or Provided by the [facility] Office for People With Developmental Disabilities. If such information is present, then the following [facility] mandated warning applies: This information has [...] AM EDT - 04/28/2021 10:38:00 AM EDT [facility] Outpatient Attender: LORNA HIGGINS MD Family Practice 04/28/2021 10:30:0 0 AM EDT [facility] ([facility]) Outpatient Attender: Renee Majano MD Main office [facility] 09/12/2020 07:00:00 AM EST [facility] ([facility]) Outpatient Attender: Aurelio Mantilla MD ALL 05/06/2020 02:41:02 PM EDT [facility] Outpatient Attender: Aurelio Mantilla MD ALL 05/01/2020 01:50:01 PM EDT [facility] Outpatient Attender: Aurelio Mantilla MD ALL 05/01/2020 01:49:01 PM EDT [facility] Medications No Information Insurance Providers Payer name Policy type / Coverage type Policy ID Covered green party ID Covered green party's relationship to yao Policy Yao Plan Information [facility] [employer] [id number] SP [id number] [facility] [place] [id number] 18 [id number] [facility] [id number] SP [id number] Problems, Conditions, and Diagnoses Code Display Name Description Problem Type Effective Dates Data Source(s) 58738333 Concussion with loss of consciousness Co ncussion with loss of consciousness Problem 09/12/2020 12:00:00 AM EST [facility] ([facility]) [id number] Concussion injury of brain Concussion injury of brain Problem 09/12/2020 12:00:00 AM EST [facility] ([facility]) [id number] Seizure Seizure Problem 09/12/2020 12:00:00 AM ES T [facility] ([facility]) V01.79 Contact with and (suspected) exposure to other viral communicable diseases Contact with and (suspected) exposure to other viral communicable diseases 05/01/2020 01:48:04 PM EDT [facility] Surgeries/Procedures Procedure Description Date Indications Data Source(s) OFFICE OUTPATIENT NEW 20 MINUTES 04/28/2021 12:00:00 A M EDT [facility] ([facility]) MRI BRAIN BRAIN STEM W/O CONTRAST MATERIAL 10/05/2020 12:00:00 AM EST [facility] ([facility]) MRI BRAIN BRAIN STEM W/O CONTRAST MATERIAL 10/05/2020 12:00:00 AM EST [facility] ([facility]) ELECTROENCEPHALOGRAM W/REC AWAKE&ASLEEP 09/18/2020 12: 00:00 AM EST [facility] ([facility] ELECTROENCEPHALOGRAM W/REC AWAKE&ASLEEP 09/18/2020 12: 00:00 AM EST [facility] ([facility] ) Results ID Date Data Source [id number] 04/28/2021 03:10:00 PM EDT [facility] ([facility]) Name Value Range Interpretation Code Description Data Violette rce(s) Supporting Document(s) Appearance of Urine Laboratory test result [facility] ([facility]) Spec [place] 1.010 1.001-1.030 [facility] ([facility]) Color of Urine Laboratory test result [facility] ([facility]) Leukocytes Laboratory test result [facility] ([facility]) pH of Urine by Test strip 7 5-9 [facility] NT ([facility]) Nitrate [Presence] in Urine Laboratory test result [facility] ([facility]) Inhouse Glucose Laboratory test result [facility] ([facility]) Protein [Presence] in Urine by Test strip Laboratory test result [facility] ([facility]) Ketones [Presence] in Urine by Test strip Laboratory test result [facility] ([facility]) Urobilinogen Laboratory test result [facility] ([facility]) Blood type and Indirect antibody screen panel - Blood Laboratory test result [facility] ([facility]) Bilirubin.total [Presence] in Urine by Test strip Laboratory test res ult [facility] ([facility]) ID Date Data Source [id number] 04/01/2021 09:09:00 AM EDT [facility] Name Value Range Interpretation Code Description Data Violette rce(s) Supporting Document(s) SARS coronavirus 2 RNA Not Detected [facility] [place] This lab was ordered by [facility] and reported by [facility]. ID Date Data Source [id number] 09/10/2020 09:15:00 AM EST [facility] Name Value Range Interpretation Code Description Data Violette rce(s) Supporting Document(s) SARS coronavirus 2 RNA Not Detected [facility] [place] This lab was ordered by [facility] and reported by [facility]. ID Date Data Source [id number] 05/01/2020 02:50:49 PM EDT [facility] In-House Lab TestsDate/Time Collect ed: May 01, 2020 2:51 PMComments: COVID test conducted in left nostril PT tolerated well Jean Claude Edmonds LPN, May 01, 2020 2:52 PMAssessment & Plan Orders:Specimen Handling [[id number]] Name Value Range Interpretation Code Description Data Violette rce(s) Supporting Document(s) ID Date Data Source [id number] 05/01/2020 02:45:00 AM EDT [facility] Name Value Range Interpretation Code Description Data Violette rce(s) Supporting Document(s) SARS-COV-2 RNA RESP QL CHAD+PROBE [facility] This lab was ordered by [facility] and reported by [facility] [place]. Procedure Social History No Information Vital Signs ID Date Data Source UNK Name Value Range Interpretation Code Description Data Source(s) Body height 67 [in_i] 67 [in_i] [facility] ([facility]) 5'7" Body weight 79.380 kg 79.380 kg [facility] ([facility]) Body weight 175.00 [lb_av] 175.00 [lb_av] [facility] T ([facility]) Systolic blood pressure 122 mm[Hg] 122 mm[Hg] M [facility] ([facility]) Body mass index (BMI) [Ratio] 27.4 kg/m2 27.4 k g/m2 [facility] ([facility]) Body surface area Derived from formula 1.91 m2 1.91 m2 [facility] ([facility]) Diastolic blood pressure 80 mm[Hg] 80 mm[Hg] [facility] ([facility]) Heart rate 74 /min 74 /min [facility] ([facility]) Oxygen saturation in Arterial blood by Pulse oximetry 97 % 97 % [facility] ([facility]) Respiratory rate 12 /min 12 /min [facility] ( [facility], ) Body height 67 [in_i] 67 [in_i] [facility] ([facility] ) 5'7" [place] body weight 148 [lb_av] 148 [lb_av[facility] Body weight 175.00 [lb_av] 175.00 [lb_av] [facility] T ([facility] ) Body mass index (BMI) [Ratio] 27.4 kg/m2 27.4 k g/m2 [facility] ([facility], )
[2021-06-08] MEDS ORDERED: diazePAM 10MG/2ML SYRINGE (J3360 PER 5MG) IM ONE (08:35)
[2021-06-08] MEDS ORDERED: KETOROLAC 30 MG/ML 1ML VIAL IM ONE (08:35)
[2021-06-08] MEDS ORDERED: LIDOCAINE 5% (LIDODERM) PATCH TD ONE ×2 (08:35→08:45)
[2021-06-08] MEDS ORDERED: NAPR-837 PO (09:55)
[2021-06-08] MEDS ORDERED: LIDO5DIS41 TD (09:56)
[2021-06-08] MEDS ORDERED: CYCL5TAB PO (09:56)
[2021-06-08 11:48] VITALS: BP 134/70
[2021-06-08] MEDS ORDERED: **NOTE PATIENT COMMENT** MISC XX SCH (21:00)
== END 2021-06-08 11:49 | disposition home or self-care (01) ==
LOC: M ED 06:32
DX: M54.9 Dorsalgia, unspecified (principal)
CPT/HCPCS: 96372; 99284; J1885; J3360

== ENCOUNTER 2022-01-03 19:16 | Emergency (ER) | payer OTHER ==
[~2022-01-03] VITALS: Ht 170.2 cm; Wt 86.4 kg
[~2022-01-03 19:16] MED LIST changes: +CYCL5TAB PO; +LIDO5DIS41 TD; +NAPR-837 PO
[2022-01-03] MEDS ORDERED: NS 1,000 ML IV ONE (19:50)
[2022-01-03 19:52] LABS: VENOUS BASE EXCESS -0.2 (-2.0-2.0); VENOUS HCO3 19.8 MEQ/L (23.0-27.0); VENOUS O2 SATURATION 98.6 % (60.0-80.0); VENOUS PARTIAL PRESSURE CO2 23.1 mmHg (38.0-50.0); VENOUS PARTIAL PRESSURE O2 105.6 mmHg (30.0-50.0); VENOUS PH 7.552 UNITS (7.330-7.430); VENOUS STANDARD HCO3 24.4 MEQ/L; VENOUS TOTAL CO2 20.6 MEQ/L (24.0-28.0)
[2022-01-03 19:58] LABS: BASO % 0.4 % (0.0-1.0); EOS % 0.3 % (0.0-3.0); HEMATOCRIT 43.6 % (42.0-52.0); HEMOGLOBIN 15.4 g/dl (13.5-17.5); LYMPH # 2.4 10^3/uL (1.5-5.0); MEAN CORPUSCULAR HEMOGLOBIN 30.3 pg (27.0-33.0); MEAN CORPUSCULAR HGB CONC 35.3 g/dl (32.0-36.5); MEAN CORPUSCULAR VOLUME 85.7 fl (80.0-96.0); MONO # 0.6 10^3/uL (0.0-0.8); MONO % 8.7 % (2.0-8.0); NEUTROPHILS # 3.8 10^3/uL (1.5-8.5); NEUTROPHILS % 55.5 % (36.0-66.0); PLATELET COUNT, AUTOMATED 227 10^3/uL (150-450); RED BLOOD COUNT 5.09 10^6/uL (4.30-6.10); WHITE BLOOD COUNT 6.8 10^3/uL (4.0-10.0)
[2022-01-03 20:29] LABS: BLOOD UREA NITROGEN 12 MG/DL (7-18); CALCIUM LEVEL 10.2 MG/DL (8.5-10.1); CARBON DIOXIDE LEVEL 21 MEQ/L (21-32); CHLORIDE LEVEL 105 MEQ/L (98-107); CREATININE FOR GFR 1.29 MG/DL (0.70-1.30); GLOMERULAR FILTRATION RATE > 60.0 (>60); GLUCOSE, FASTING 97 MG/DL (70-100); POTASSIUM SERUM 4.2 MEQ/L (3.5-5.1); SODIUM LEVEL 138 MEQ/L (136-145)
[2022-01-03 22:01] VITALS: BP 155/84
== END 2022-01-03 22:40 | disposition home or self-care (01) ==
LOC: M ED 19:16
DX: R06.02 Shortness of breath (principal); R07.9 Chest pain, unspecified

== ENCOUNTER 2022-06-06 11:30 | Emergency (ER) | payer OTHER ==
[~2022-06-06] VITALS: Ht 170.2 cm; Wt 76.3 kg
[2022-06-06] MEDS ORDERED: LEVE750T5 PO (11:44)
[2022-06-06] MEDS ORDERED: IBUPROFEN 600MG TAB PO ONE (12:15)
[2022-06-06 13:19] VITALS: BP 138/82
== END 2022-06-06 13:24 | disposition home or self-care (01) ==
LOC: M ED 11:30
DX: J06.9 Acute upper respiratory infection, unspecified (principal); B34.9 Viral infection, unspecified; Z87.442 Personal history of urinary calculi; R56.9 Unspecified convulsions

== ENCOUNTER 2022-08-05 09:39 | Emergency (ER) | payer OTHER ==
[~2022-08-05] VITALS: Ht 170.2 cm; Wt 76.2 kg
[~2022-08-05 09:39] MED LIST changes: +LEVE750T5 PO
[2022-08-05 12:52] LABS: GC DNA AMPLIFICATION NEGATIVE (NEGATIVE)
[2022-08-05 15:01] VITALS: BP 133/77
[2022-08-05 16:32] LABS: HIV 1&2 SCREEN CENTAUR NEGATIVE (NEGATIVE)
== END 2022-08-05 16:30 | disposition home or self-care (01) ==
LOC: M ED 09:39
DX: J02.9 Acute pharyngitis, unspecified (principal); B34.9 Viral infection, unspecified; F41.9 Anxiety disorder, unspecified; Z11.3 Encounter for screening for infections with a predominantly sexual mode of transmission; R56.9 Unspecified convulsions; Z87.442 Personal history of urinary calculi

== ENCOUNTER 2022-08-16 13:14 | Emergency (ER) | payer OTHER ==
[~2022-08-16] VITALS: Ht 170.2 cm; Wt 75.0 kg
[2022-08-16 18:53] VITALS: BP 131/75
[2022-08-16] MEDS ORDERED: KETOROLAC 60MG 2ML VIAL IM ONE (21:40)
[2022-08-20 09:09] LABS: HSV-1 DNA Negative (Negative); HSV-2 DNA Negative (Negative)
== END 2022-08-16 22:25 | disposition home or self-care (01) ==
LOC: M ED 13:14
DX: M25.562 Pain in left knee (principal); Z20.2 Contact with and (suspected) exposure to infections with a predominantly sexual mode of transmission; G40.89 Other seizures; Y92.9 Unspecified place or not applicable; Y93.01 Activity, walking, marching and hiking; Y99.0 Civilian activity done for income or pay

== ENCOUNTER 2022-08-30 17:44 | Emergency (ER) | payer OTHER ==
[~2022-08-30] VITALS: Ht 172.7 cm; Wt 75.0 kg
[2022-08-31 01:05] VITALS: BP 128/68
== END 2022-08-31 04:52 | disposition home or self-care (01) ==
LOC: M ED 17:44
DX: M25.561 Pain in right knee (principal); M11.261 Other chondrocalcinosis, right knee; M71.21 Synovial cyst of popliteal space [Baker], right knee; W01.0XXA Fall on same level from slipping, tripping and stumbling without subsequent striking against object, initial encounter; Y99.0 Civilian activity done for income or pay

== ENCOUNTER → 2022-10-04 | Outpatient (REF) | payer OTHER ==
[2022-10-04 17:04] LABS: APPEARANCE, URINE CLEAR (CLEAR); BACTERIA, URINE AUTO NEGATIVE (NEGATIVE); BILIRUBIN, URINE AUTO NEGATIVE (NEGATIVE); BLOOD, URINE BLOOD NEGATIVE (NEGATIVE); COLOR, URINE YELLOW (YELLOW); GLUCOSE, URINE (UA) AUTO NEGATIVE (NEGATIVE); KETONE, URINE AUTO NEGATIVE (NEGATIVE); LEUKOCYTE ESTERASE, URINE AUTO NEGATIVE (NEGATIVE); MUCUS, URINE SMALL (NEGATIVE); NITRITE, URINE AUTO NEGATIVE (NEGATIVE); PROTEIN, URINE AUTO NEGATIVE (NEGATIVE); RBC, URINE AUTO 1 /HPF (0-3); SPECIFIC GRAVITY URINE AUTO 1.013 (1.002-1.035); SQUAMOUS EPITHELIAL CELL UR AU 0 /HPF (0-6); UROBILINOGEN, URINE AUTO 0.2 mg/dL (0.0-2.0); WBC, URINE AUTO 6 /HPF (0-3)
[2022-10-06 15:48] LABS: GC DNA AMPLIFICATION NEGATIVE (NEGATIVE)
== END ==
LOC: M LAB REF 16:25
PROVIDERS: ATTEND Physician Assistant Medical
DX: R39.9 Unspecified symptoms and signs involving the genitourinary system (principal)

== ENCOUNTER 2022-10-18 17:41 | Emergency (ER) | payer OTHER ==
[~2022-10-18] VITALS: Ht 170.2 cm; Wt 76.4 kg
[2022-10-18 17:42] VITALS: BP 129/76
[2022-10-18 19:43] LABS: RSV AMPLIFICATION NEGATIVE (NEGATIVE)
== END 2022-10-18 23:46 | disposition left against medical advice (07) ==
LOC: M ED 17:41
DX: Z11.52 Encounter for screening for COVID-19 (principal); Z53.21 Procedure and treatment not carried out due to patient leaving prior to being seen by health care provider

== ENCOUNTER 2022-11-07 19:54 | Emergency (ER) | payer OTHER ==
[~2022-11-07] VITALS: Ht 172.7 cm; Wt 75.0 kg
[2022-11-07] MEDS ORDERED: ONDA-83 (20:09)
[2022-11-07] MEDS ORDERED: ACET1TAB55 (20:09)
[2022-11-07] MEDS ORDERED: CELE1CAP9 (20:09)
[2022-11-07] MEDS ORDERED: DOCU100C16 (20:09)
[2022-11-07] MEDS ORDERED: OXYC-517 (20:09)
[2022-11-07] MEDS ORDERED: GABA-282 (20:09)
[2022-11-07] MEDS ORDERED: MORPHINE 4 MG/ML 1ML VIAL IV ONE (23:35)
[2022-11-07] MEDS ORDERED: ONDANSETRON 4MG 2ML VIAL IV ONE (23:35)
[2022-11-07] MEDS ORDERED: NS 1,000 ML IV ONE (23:35)
[2022-11-08] MEDS ORDERED: ISOVUE-370 76% 100ML VIAL As Ordered ONE (00:05)
[2022-11-08 00:08] LABS: BASO % 0.5 % (0.0-1.0); EOS # 0.1 10^3/uL (0.0-0.5); EOS % 1.6 % (0.0-3.0); HEMATOCRIT 41.5 % (42.0-52.0); HEMOGLOBIN 14.2 g/dl (13.5-17.5); LYMPH # 2.6 10^3/uL (1.5-5.0); LYMPH % 33.8 % (24.0-44.0); MEAN CORPUSCULAR HEMOGLOBIN 30.7 pg (27.0-33.0); MEAN CORPUSCULAR HGB CONC 34.2 g/dl (32.0-36.5); MEAN CORPUSCULAR VOLUME 89.8 fl (80.0-96.0); MONO # 0.7 10^3/uL (0.0-0.8); MONO % 8.7 % (2.0-8.0); NEUTROPHILS # 4.2 10^3/uL (1.5-8.5); NEUTROPHILS % 54.5 % (36.0-66.0); PLATELET COUNT, AUTOMATED 249 10^3/uL (150-450); RED BLOOD COUNT 4.62 10^6/uL (4.30-6.10); WHITE BLOOD COUNT 7.7 10^3/uL (4.0-10.0)
[2022-11-08 00:15] LABS: ERYTHROCYTE SEDIMENTATION RATE 64 mm/hr (0-15)
[2022-11-08 00:21] LABS: C REACTIVE PROTEIN QUANTITATIV 2.9 MG/DL (<1.0)
[2022-11-08 00:26] LABS: FREE THYROXINE INDEX 3.2 % (1.4-3.8); T UPTAKE 32.1 % (22.5-37.0); THYROID STIMULATING HORMONE 1.733 uIU/ML (0.55-4.78)
[2022-11-08 03:49] VITALS: BP 112/56
== END 2022-11-08 04:13 | disposition home or self-care (01) ==
LOC: M ED 19:54
DX: L76.32 Postprocedural hematoma of skin and subcutaneous tissue following other procedure (principal); M25.461 Effusion, right knee; R06.02 Shortness of breath; R42 Dizziness and giddiness; G40.909 Epilepsy, unspecified, not intractable, without status epilepticus; R51.9 Headache, unspecified; Z87.442 Personal history of urinary calculi
CPT/HCPCS: 71275; 73564; 80047; 83605; 84436; 84443; 84479; 85025; 85652; 86140; 93971; 96374; 96375; 99284; J2405; Q9967

== ENCOUNTER 2023-03-14 22:11 | Emergency (ER) | payer OTHER ==
[~2023-03-14] VITALS: Ht 170.2 cm; Wt 72.7 kg
[2023-03-14 22:11] VITALS: BP 138/87; O2SAT 96
[~2023-03-14 22:11] MED LIST changes: +ACET1TAB55; +CELE1CAP9; +DOCU100C16; +GABA-282; +ONDA-83; +OXYC-517
[2023-03-15 01:04] VITALS: TEMP 101
[2023-03-15] MEDS ORDERED: ONDANSETRON 4MG ORAL DISINTEGRATING TAB PO ONE (01:10)
[2023-03-15] MEDS ORDERED: ACETAMINOPHEN 325 MG TAB PO ONE (01:10)
[2023-03-15] MEDS ORDERED: ONDA4TAB6 PO (01:11)
== END 2023-03-15 01:33 | disposition home or self-care (01) ==
LOC: M ED 22:11
DX: U07.1 COVID-19 (principal); Z79.83 Long term (current) use of bisphosphonates; Z79.1 Long term (current) use of non-steroidal anti-inflammatories (NSAID); Z79.899 Other long term (current) drug therapy

== ENCOUNTER 2023-07-07 15:02 | Emergency (ER) | payer OTHER ==
[~2023-07-07] VITALS: Ht 172.7 cm; Wt 76.7 kg
[~2023-07-07 15:02] MED LIST changes: +CELE0.09; -CELE1CAP9; +ONDA4TAB6 PO
[2023-07-07 16:12] LABS: BASO % 0.5 % (0.0-1.0); EOS # 0.1 10^3/uL (0.0-0.5); EOS % 2.6 % (0.0-3.0); HEMATOCRIT 46.7 % (42.0-52.0); HEMOGLOBIN 15.7 g/dl (13.5-17.5); LYMPH # 1.9 10^3/uL (1.5-5.0); LYMPH % 44.9 % (24.0-44.0); MEAN CORPUSCULAR HEMOGLOBIN 30.3 pg (27.0-33.0); MEAN CORPUSCULAR HGB CONC 33.6 g/dl (32.0-36.5); MONO # 0.4 10^3/uL (0.0-0.8); MONO % 10.4 % (2.0-8.0); NEUTROPHILS # 1.8 10^3/uL (1.5-8.5); NEUTROPHILS % 41.4 % (36.0-66.0); PLATELET COUNT, AUTOMATED 224 10^3/uL (150-450); RED BLOOD COUNT 5.19 10^6/uL (4.30-6.10); WHITE BLOOD COUNT 4.3 10^3/uL (4.0-10.0)
[2023-07-07 16:35] LABS: LIPASE 32 U/L (12-53)
[2023-07-07 16:37] LABS: ALBUMIN 3.9 G/DL (3.2-5.2); ALKALINE PHOSPHATASE 60 U/L (46-116); ALT/SGPT 20 U/L (7.0-40); AST/SGOT 21 U/L (<34); BILIRUBIN,DIRECT < 0.1 MG/DL (<0.4); BILIRUBIN,TOTAL 0.3 MG/DL (0.3-1.2); BLOOD UREA NITROGEN 11 MG/DL (9-23); CALCIUM LEVEL 9.2 MG/DL (8.5-10.1); CARBON DIOXIDE LEVEL 29 MMOL/L (20-31); CHLORIDE LEVEL 105 MMOL/L (98-107); CREATININE FOR GFR 0.97 MG/DL (0.70-1.30); GLOMERULAR FILTRATION RATE > 60.0 (>60); GLUCOSE, FASTING 73 MG/DL (60-100); POTASSIUM SERUM 4.2 MMOL/L (3.5-5.1); SODIUM LEVEL 139 MMOL/L (136-145); TOTAL PROTEIN 7.6 G/DL (5.7-8.2)
[2023-07-07] MEDS ORDERED: LEVE500T5 (17:32)
[2023-07-07] MEDS ORDERED: ISOVUE-370 76% 100ML VIAL As Ordered ONE (19:11)
[2023-07-07 20:39] VITALS: BP 136/88; TEMP 97.9; O2SAT 99
[2023-07-07 22:02] LABS: CHLAMYDIA DNA AMPLIFICATION NEGATIVE (NEGATIVE); GC DNA AMPLIFICATION NEGATIVE (NEGATIVE)
== END 2023-07-07 20:41 | disposition home or self-care (01) ==
LOC: M ED 15:02
DX: R31.9 Hematuria, unspecified (principal); K92.1 Melena; Z87.442 Personal history of urinary calculi
CPT/HCPCS: 74177; 80048; 80076; 81001; 83690; 85025; 87086; 87661; 87810; 87850; 99284; Q9967